=== PATIENT | female | born 1945 | race Caucasian/White ===

== ENCOUNTER → 2016-11-04 | Outpatient (CLI) | payer MEDICARE ==
--- NOTE | 2016-11-04 11:26 | BD ---
EXAMINATION TYPE: MG DEXA axial skeleton. DATE OF EXAM: 11/04/2016 COMPARISON: NONE Height: 62.50 Weight: 124 FRAX RISK QUESTIONS: Alcohol (3 or more units per day): no Family History (Parent hip fracture): no Glucocorticoids (More than 3mos): no (Ex: prednisone, prednisolone, methylprednisolone, dexamethasone, and hydrocortisone). History of Fracture in Adulthood: yes, toe Secondary Osteoporosis: 1. Type 1 Diabetes: no 2. Hyperthyroidism: no 3. Menopause before 45: no 4. Malnutrition: no 5. Chronic liver disease: no Rheumatoid Arthritis: no Current Tobacco Use: no RISK FACTORS HISTORY OF: Family History of Osteoporosis: no Active: yes Diet low in dairy products/other sources of calcium: at least one serving a day Postmenopausal woman: no Take estrogen and/or progesterone medications: not now How long: about 3 years Lost more than 2 inches in height since high school: states may have been about 64 inches tall at one time Frequent falls: no Poor Health: no Hyperparathyroidism: no Adrenal Insufficiency: no MEDICATIONS: Prednisone or other steroids: no Thyroid Medications:no Osteoporosis Medications: yes Which medication: Reclast How Long: approximately yearly after 2013 DEXA study Additional Medications: calcium & Vitamin D EXAM MEASUREMENTS: Bone mineral densitometry was performed using the [employer] System. Bone mineral density as measured about the Lumbar spine is: ----- L1-L4(G/cm2): 0.836 T Score Values are as follows: ----- L2: -3.4 ----- L3: -2.8 ----- L4: -2.7 ----- L1-L4: -2.9 Bone mineral density has: Decreased -1.3% since study of: 01/28/2013 Bone mineral density about the R hip (g/cm2): 0.784 Bone mineral density about the L hip (g/cm2): 0.710 T Score values are as follows: -----R Neck: -1.8 -----L Neck: -2.4 -----R Total: -2.3 -----L Total: -2.5 Bone mineral density has: Decreased -6.7% since study of: 01/28/2013 IMPRESSION: Osteoporosis (T Score less than -2.5) as noted by T Score values at the There is increased fracture risk and therapy is usually indicated based on age. Re-Screen 1-2 years. Bone density is diminished 1.3% from 2013 within the lumbar spine. Bone density is diminished 6.7% wi thin the bilateral hips from 2013. NOTE: T-SCORE=SD OF THE YOUNG ADULT MEAN.
--- NOTE | 2016-11-05 07:58 | MM ---
Reason for exam: screening (asymptomatic). Last mammogram was performed 1 year and 4 months ago. History: Patient is postmenopausal. Took estrogen for 3 years beginning at age 23. Took progesterone for 3 years. Physical Findings: A clinical breast exam by your physician is recommended on an annual basis and results should be correlated with mammographic findings. MG 3D Screening Mammo W/Cad Bilateral CC and MLO view(s) were taken. Prior study comparison: June 29, 2015, bilateral MG 3d screening mammo w/cad. January 30, 2014, bilateral MG screening mammo w CAD. The breast tissue is heterogeneously dense. This may lower the sensitivity of mammography. Finding: There are typically benign vascular, round calcifications in both breasts. There is no discrete abnormality. ASSESSMENT: Benign, BI-RAD 2 RECOMMENDATION: Routine screening mammogram of both breasts in 1 year.
== END | disposition home or self-care (01) ==
LOC: RADMAMWWP 09:14
PROVIDERS: ATTEND Family Medicine
DX: Z12.31 Encounter for screening mammogram for malignant neoplasm of breast (principal); M81.0 Age-related osteoporosis without current pathological fracture
CPT/HCPCS: 77080; 77063; G0202

== ENCOUNTER → 2017-11-23 | Outpatient (CLI) | payer MEDICARE ==
--- NOTE | 2017-11-24 10:19 | MM ---
Reason for exam: screening (asymptomatic). Last mammogram was performed 1 year and 1 month ago. History: Patient is postmenopausal. Took estrogen for 3 years beginning at age 23. Took progesterone for 3 years. Physical Findings: A clinical breast exam by your physician is recommended on an annual basis and results should be correlated with mammographic findings. MG 3D Screening Mammo W/Cad Bilateral CC and MLO view(s) were taken. Technologist: Filomena Kaplan RT (R)(M) Prior study comparison: November 04, 2016, bilateral MG 3d screening mammo w/cad. June 29, 2015, bilateral MG 3d screening mammo w/cad. The breast tissue is heterogeneously dense. This may lower the sensitivity of mammography. No suspicious abnormality. No significant changes when compared with prior studies. ASSESSMENT: Negative, BI-RAD 1 RECOMMENDATION: Routine screening mammogram of both breasts in 1 year.
== END | disposition home or self-care (01) ==
LOC: RADMAMWWP 11:09
PROVIDERS: ATTEND Family Medicine
DX: Z12.31 Encounter for screening mammogram for malignant neoplasm of breast (principal)
CPT/HCPCS: 77063; 77067

== ENCOUNTER → 2018-01-12 | Outpatient (CLI) | payer MEDICARE ==
[~2018-01-12] MED LIST: SODIUM CHLORIDE 0.9% 500 ML 500 ML in EMPTY BAG 1 BAG IV PRN; ZOLEDRONIC ACID 5 MG in SODIUM CHLORIDE 0.9% 100 ML IV ONE
[2018-01-12 15:32] VITALS: BP 161/83; PULSE 60; RESP 16; TEMP 97.9
== END | disposition home or self-care (01) ==
LOC: PROCWHC3 14:39
PROVIDERS: ATTEND Family Medicine
DX: M81.0 Age-related osteoporosis without current pathological fracture (principal)
CPT/HCPCS: 96365; J3489

== ENCOUNTER → 2018-01-22 | Day surgery (SDC) | payer MEDICARE ==
[2018-01-20 15:01] VITALS: BMI 22.6
[~2018-01-22] MED LIST changes: +LACTATED RINGERS 1,000 ML IV SCH; +LIDOCAINE 1% 20 ML VIAL (10MG/ML) FOR IV START INTRADERMA PRN; +MIDAZOLAM (PF) 2 MG/2 ML VIAL IV PRN; +PROPOFOL 10 MG/ML 20 ML VIAL IV ONE; -SODIUM CHLORIDE 0.9% 500 ML 500 ML in EMPTY BAG 1 BAG IV PRN; -ZOLEDRONIC ACID 5 MG in SODIUM CHLORIDE 0.9% 100 ML IV ONE
[2018-01-22 09:14] VITALS: RESP 16; TEMP 97
--- NOTE | 2018-01-22 11:01 | P.PCN ---
Date of Procedure: 01/22/18 Procedure(s) Performed: BRIEF HISTORY: Patient is a 72-year-old pleasant white female, scheduled for an elective colonoscopy as a part of screening for colorectal neoplasia. Her brother was diagnosed with colon cancer at age 60. PROCEDURE PERFORMED: Colonoscopy. PREOPERATIVE DIAGNOSIS: Screening for colon cancer/family history of colon cancer. IV sedation per Anesthesia. PROCEDURE: After informed consent was obtained, the patient, was brought into the endoscopy unit. IV sedation was administered by Anesthesia under continuous monitoring. Digital rectal examination was normal. Initially the Olympus CF- 160 flexible video colonoscope was then inserted in the rectum, gradually advanced into the cecum without any difficulty. Careful examination was performed as the scope was gradually being withdrawn. Ileocecal valve and the appendiceal orifice were visualized and appeared normal. Prep was excellent. Mucosa of the cecum, ascending colon, transverse colon, descending colon, sigmoid colon, and rectum appeared normal. Scattered sigmoid diverticulosis. Retroflexion was performed in the rectum and no lesions were seen. The patient tolerated the procedure well. IMPRESSION: Normal-appearing colon from rectum to cecum with no evidence of colorectal neoplasia. Scattered sigmoid diverticulosis. RECOMMENDATIONS: Findings of this examination were discussed with the patient or family. She was advised to have a repeat screening coloscopy in 5 years from now because of the family history of colon cancer.
[2018-01-22 11:19] VITALS: BP 111/60; PULSE 69
== END ==
LOC: ORWHC2ENDO 08:43
PROVIDERS: ATTEND Internal Medicine Gastroenterology
DX: Z12.11 Encounter for screening for malignant neoplasm of colon (principal); K57.30 Diverticulosis of large intestine without perforation or abscess without bleeding; Z80.0 Family history of malignant neoplasm of digestive organs; Z88.0 Allergy status to penicillin
CPT/HCPCS: J2704; G0105; 45378

== ENCOUNTER → 2018-07-02 | Outpatient (CLI) | payer MEDICARE ==
--- NOTE | 2018-07-02 12:46 | XR ---
EXAMINATION TYPE: XR chest 2V DATE OF EXAM: 07/02/2018 COMPARISON: NONE TECHNIQUE: PA and lateral views submitted. HISTORY: Pain FINDINGS: No pleural effusion or pneumothorax Hyperinflation. There is biapical pleural thickening. Vague nodul ar densities overlying both lungs. May represent nipple shadows. Hypertrophic and degenerative change of the spine. Subsegmental changes at the left perihilar and lower lobe region. IMPRESSION: 1. Left basilar atelectasis versus infiltrate. Vague nodular densities overlying both lungs which may represent nipple shadows. Pulmonary nodule not entirely excluded. Consider follow-up CT chest..
--- NOTE | 2018-07-02 12:47 | XR ---
EXAMINATION TYPE: XR abdomen 2V DATE OF EXAM: 07/02/2018 COMPARISON: NONE HISTORY: Lower abdominal pain TECHNIQUE: One view abdominal series FINDINGS: The osseous structures are intact. The bowel gas pattern is nonspecific. Surgical change in the righ t upper quadrant. Retained fecal debris throughout the colon correlate for constipation. Arthropathy of the hips. Correlate for chronic right sided acetabular labral tear. IMPRESSION: 1. Nonspecific abdomen.
== END ==
LOC: RADXRMAIN 12:21
PROVIDERS: ATTEND Family Medicine
DX: R91.1 Solitary pulmonary nodule (principal); R91.8 Other nonspecific abnormal finding of lung field; R19.7 Diarrhea, unspecified
CPT/HCPCS: 71046; 74019

== ENCOUNTER → 2018-07-12 | Outpatient (CLI) | payer MEDICARE ==
--- NOTE | 2018-07-12 13:57 | XR ---
EXAMINATION TYPE: XR chest 2V DATE OF EXAM: 07/12/2018 COMPARISON: Prior chest x-ray 07/02/2018 HISTORY: R07.9, chest pain TECHNIQUE: Frontal and lateral views of the chest are obtained. FINDINGS: There is no focal air space opacity, pleural effusion, or pneumothorax seen. The cardiac silhouette size is within normal limits. The aorta is dense. The osseous structures are intact. IMPRESSION: No acute cardiopulmonary process.
== END | disposition home or self-care (01) ==
LOC: RADXRMAIN 13:30
PROVIDERS: ATTEND Physician Assistant
DX: R07.9 Chest pain, unspecified (principal)
CPT/HCPCS: 71046

== ENCOUNTER → 2018-12-09 | Outpatient (CLI) | payer MEDICARE ==
--- NOTE | 2018-12-09 16:22 | BD ---
EXAMINATION TYPE: Axial Bone Density DATE OF EXAM: 12/09/2018 COMPARISON: NONE CLINICAL HISTORY: 73-year-old female post menopausal screening Height: 5 FT 2 IN Weight: 129 FRAX RISK QUESTIONS: History of Fracture in Adulthood: YES RISK FACTORS HISTORY OF: Active: YES Postmenopausal woman: AGE 50 Take estrogen and/or progesterone medications: ONLY FOR A SHORT TIME NO LONGER TAKES MEDICATIONS: Additional Medications: NONE Additional History: EXAM MEASUREMENTS: Bone mineral densitometry was performed using the [employer] System. Bone mineral density as measured about the Lumbar spine is: ----- L1-L4(G/cm2): 0.839 T Score Values are as follows: ----- L2: -3.2 ----- L3: -2.9 ----- L4: -2.6 ----- L1-L4: -2.8 Bone mineral density has: INCREASED1.1 SINCE STUDY OF 2016 Bone mineral density about the R hip (g/cm2): 0.775 Bone mineral density about the L hip (g/cm2): 0.758 T Score values are as follows: -----R Neck: -1.9 -----L Neck: -2.0 -----R Total: -2.2 -----L Total: -2.4 Bone mineral density has : INCREASED 1.1 % SINCE STUDY OF 2016 IMPRESSION: Osteoporosis (T Score less than -2.5). There is increased fracture risk and therapy is usually indicated based on age. Re-Screen 1-2 years. NOTE: T-SCORE=SD OF THE YOUNG ADULT MEAN.
--- NOTE | 2018-12-10 14:22 | MM ---
Reason for exam: screening (asymptomatic). Last mammogram was performed 1 year and 1 month ago. History: Patient is postmenopausal. Took estrogen for 3 years beginning at age 23. Took progesterone for 3 years. Physical Findings: A clinical breast exam by your physician is recommended on an annual basis and results should be correlated with mammographic findings. MG 3D Screening Mammo W/Cad Bilateral CC and MLO view(s) were taken. Prior study comparison: November 23, 2017, bilateral MG 3d screening mammo w/cad. November 04, 2016, bilateral MG 3d screening mammo w/cad. The breast tissue is heterogeneously dense. This may lower the sensitivity of mammography. Benign appearing bilateral calcifications. No suspicious abnormality. No significant changes when compared with prior studies. ASSESSMENT: Benign, BI-RAD 2 RECOMMENDATION: Routine screening mammogram of both breasts in 1 year.
== END | disposition home or self-care (01) ==
LOC: RADBDWWP 08:44
PROVIDERS: ATTEND Family Medicine
DX: Z12.31 Encounter for screening mammogram for malignant neoplasm of breast (principal); M81.0 Age-related osteoporosis without current pathological fracture
CPT/HCPCS: 77063; 77067; 77080

== ENCOUNTER → 2019-01-18 | Outpatient (CLI) | payer MEDICARE ==
[~2019-01-18] MED LIST changes: -LACTATED RINGERS 1,000 ML IV SCH; -LIDOCAINE 1% 20 ML VIAL (10MG/ML) FOR IV START INTRADERMA PRN; -MIDAZOLAM (PF) 2 MG/2 ML VIAL IV PRN; -PROPOFOL 10 MG/ML 20 ML VIAL IV ONE; +SODIUM CHLORIDE 0.9% 500 ML 500 ML in EMPTY BAG 1 BAG IV PRN; +ZOLEDRONIC ACID 5 MG in SODIUM CHLORIDE 0.9% 100 ML IV NR
[2019-01-18 09:50] VITALS: BP 156/86; PULSE 79; RESP 16; TEMP 97.4
== END ==
LOC: PROCWHC3 09:19
PROVIDERS: ATTEND Family Medicine
DX: M81.0 Age-related osteoporosis without current pathological fracture (principal)
CPT/HCPCS: 96365; J3489

== ENCOUNTER → 2019-08-31 | Outpatient (CLI) | payer MEDICARE ==
--- NOTE | 2019-08-31 15:31 | XR ---
EXAMINATION TYPE: XR foot complete LT, XR toes LT DATE OF EXAM: 08/31/2019 CLINICAL HISTORY: Injury with pain. TECHNIQUE: Frontal, lateral, and oblique images of the left foot are obtained. 3 views left first toe . COMPARISON: None FINDINGS: Overlying gauze or bandage material first distal phalanx level makes evaluation suboptimal . Persistent irregular linear lucency likely reflecting nondisplaced acute comminuted fracture throug h proximal to mid diaphysis first distal phalanx. Mild to moderate narrowing first metatarsophalangea l and interphalangeal joints. There is no additional acute fracture/dislocation evident in the left foot. Demineralization is pre sent. Some flexion of the toes is seen. The joint spaces in the left foot appear within normal limits . The overlying soft tissue appears unremarkable. IMPRESSION: There is acute comminuted nondisplaced fracture through proximal to midportion of the fi rst distal phalanx. (Initial encounter closed type post traumatic fracture)
== END | disposition home or self-care (01) ==
LOC: RADXRMAIN 14:21
PROVIDERS: ATTEND Family Medicine
DX: S92.421A Displaced fracture of distal phalanx of right great toe, initial encounter for closed fracture (principal)

== ENCOUNTER → 2019-10-14 | Outpatient (CLI) | payer MEDICARE ==
--- NOTE | 2019-10-14 14:58 | US ---
EXAMINATION TYPE: US venous doppler duplex LE LT DATE OF EXAM: 10/14/2019 2:48 PM COMPARISON: NONE CLINICAL HISTORY: 74-year-old female I82.402 DVT left lower leg. Edema SIDE PERFORMED: Left TECHNIQUE: The lower extremity deep venous system is examined utilizing real time linear array sonog han with graded compression, doppler sonography and color-flow sonography. FINDINGS: VESSELS IMAGED: External Iliac Vein (EIV) Common Femoral Vein Deep Femoral Vein Greater Saphenous Vein * Femoral Vein Popliteal Vein Small Saphenous Vein * Proximal Calf Veins (* superficial vessels Left Leg: Negative for DVT IMPRESSION: No evidence for DVT within the left lower extremity imaged from the groin to the upper calf.
== END | disposition home or self-care (01) ==
LOC: RADUSWWP 14:27
PROVIDERS: ATTEND Podiatrist Foot & Ankle Surgery
DX: I82.402 Acute embolism and thrombosis of unspecified deep veins of left lower extremity (principal)

== ENCOUNTER → 2020-01-26 | Outpatient (CLI) | payer MEDICARE ==
[2020-01-26 12:40] VITALS: BP 175/75; PULSE 73; RESP 16; TEMP 97.7
== END | disposition home or self-care (01) ==
LOC: PROCWHC3 12:19
PROVIDERS: ATTEND Family Medicine
DX: M81.0 Age-related osteoporosis without current pathological fracture (principal)
CPT/HCPCS: 96365; J3489

== ENCOUNTER → 2020-10-11 | Outpatient (CLI) | payer MEDICARE ==
--- NOTE | 2020-10-12 12:16 | MM ---
Reason for exam: screening (asymptomatic). Last mammogram was performed 1 year and 10 months ago. History: Patient is postmenopausal. Took estrogen for 3 years beginning at age 23. Took progesterone for 3 years. Physical Findings: A clinical breast exam by your physician is recommended on an annual basis and results should be correlated with mammographic findings. MG 3D Screening Mammo W/Cad Bilateral CC and MLO view(s) were taken. Prior study comparison: December 09, 2018, bilateral MG 3d screening mammo w/cad. November 23, 2017, bilateral MG 3d screening mammo w/cad. The breast tissue is heterogeneously dense. This may lower the sensitivity of mammography. No significant changes when compared with prior studies. ASSESSMENT: Benign, BI-RAD 2 RECOMMENDATION: Routine screening mammogram of both breasts in 1 year.
== END | disposition home or self-care (01) ==
LOC: RADMAMWWP 16:05
PROVIDERS: ATTEND Family Medicine
DX: Z12.31 Encounter for screening mammogram for malignant neoplasm of breast (principal); Z78.0 Asymptomatic menopausal state
CPT/HCPCS: 77063; 77067

== ENCOUNTER → 2021-01-10 | Outpatient (CLI) | payer MEDICARE ==
--- NOTE | 2021-01-10 14:10 | BD ---
EXAMINATION TYPE: Axial Bone Density DATE OF EXAM: 01/10/2021 COMPARISON: 12.09.2018 CLINICAL HISTORY: 75 YR OLD FEMALE.....ICD-10 CODE: M81.0 OSTEOPOROSIS Height: 62 Weight: 131 FRAX RISK QUESTIONS: History of Fracture in Adulthood: YES RISK FACTORS HISTORY OF: HX OF TOE FX AN ADULT Postmenopausal woman: YES, TOTAL HYST 1992, AGE 47 YRS OLD Take estrogen and/or progesterone medications: BCP IN THE PAST Hyperparathyroidism: NO Adrenal Insufficiency: NO MEDICATIONS: Osteoporosis Medications: RECLAST, YRLY Additional Medications: VIT D AND CALCIUM Additional History: NOTHING ADDITIONAL TO ADD EXAM MEASUREMENTS: Bone mineral densitometry was performed using the [employer] System. Bone mineral density as measured about the Lumbar spine is: ----- L1-L4(G/cm2): 0.849 T Score Values are as follows: ----- L1: -2.8 ----- L2: -3.2 ----- L3: -2.4 ----- L4: -2.8 ----- L1-L4: -2.8 Bone mineral density has: Increased 0.8% since study of: 12.09.2018 Bone mineral density about the R hip (g/cm2): 0.735 Bone mineral density about the L hip (g/cm2): 0.727 T Score values are as follows: -----R Neck: -1.9 -----L Neck: -2.2 -----R Total: -2.2 -----L Total: -2.3 Bone mineral density has: Increased 2.1% since study of: 12.09.2018 FRAX%s; THERE IS A 35.0% CHANCE FOR A MAJOR OSTEOPOROTIC FX AND A 20.0% FOR HIPS......PROBABILITY FOR FX IN 10 YRS TIME IMPRESSION: Osteoporosis NOTE: T-SCORE=SD OF THE YOUNG ADULT MEAN.
== END | disposition home or self-care (01) ==
LOC: RADBDWWP 09:17
PROVIDERS: ATTEND Family Medicine
DX: M81.0 Age-related osteoporosis without current pathological fracture (principal); Z78.0 Asymptomatic menopausal state
CPT/HCPCS: 77080

== ENCOUNTER → 2021-02-08 | Outpatient (CLI) | payer MEDICARE ==
[2021-02-08 09:39] VITALS: RESP 16; TEMP 97.6
[2021-02-08 10:16] VITALS: BP 159/83; PULSE 76
== END ==
LOC: PROCWHC3 09:25
PROVIDERS: ATTEND Family Medicine
DX: M81.0 Age-related osteoporosis without current pathological fracture (principal); Z88.0 Allergy status to penicillin
CPT/HCPCS: 96365; J3489

== ENCOUNTER → 2021-10-16 | Outpatient (CLI) | payer MEDICARE ==
--- NOTE | 2021-10-25 09:51 | MM ---
Reason for Exam: Screening (asymptomatic). Last screening mammogram was performed 12 month(s) ago. Patient History: Menarche at age 17. First Full-Term at age 25. Left ovary removed at age 49. Right ovary removed at age 49. Hysterectomy at age 49. Postmenopausal. Estrogen, starting at age 23 for 3 years. Patient used Progesterone for 3 years. Maternal grandmother had ovarian cancer. Mother had ovarian cancer at or over age 50. Risk Values: Carey 5 year model risk: 1.4%. NCI Lifetime model risk: 3.1%. Prior Study Comparison: 11/23/2017 Bilateral Screening Mammogram, [facility]. 12/09/2018 Bilateral Screening Mammogram, [facility]. 10/11/2020 Bilateral Screening Mammogram, [facility]. Tissue Density: The breast tissue is heterogeneously dense. This may lower the sensitivity of mammography. Findings: Analyzed By CAD. There is no suspicious group of microcalcifications or new suspicious mass in either breast. Overall Assessment: Benign, BI-RAD 2 Management: Screening Mammogram of both breasts in 1 year. A clinical breast exam by your physician is recommended on an annual basis and results should be correlated with mammographic findings. Electronically signed and approved by: George Brasher M.D. Radiologis
== END | disposition home or self-care (01) ==
LOC: RADMAMWWP 10:14
PROVIDERS: ATTEND Family Medicine
DX: Z12.31 Encounter for screening mammogram for malignant neoplasm of breast (principal); Z78.0 Asymptomatic menopausal state
CPT/HCPCS: 77063; 77067

== ENCOUNTER → 2022-06-17 | Outpatient (CLI) | payer MEDICARE ==
[2022-06-17 13:08] VITALS: BP 137/76; PULSE 74; RESP 16; TEMP 97.6
== END ==
LOC: PROCWHC3 12:55
PROVIDERS: ATTEND Family Medicine
DX: M81.0 Age-related osteoporosis without current pathological fracture (principal)
CPT/HCPCS: 96365; J3489

== ENCOUNTER 2022-08-08 10:10 | Day surgery (SDC) | payer MEDICARE ==
[2022-08-08 10:58] VITALS: RESP 16; TEMP 98
[2022-08-08] MEDS: LACTATED RINGERS 1,000 ML IV SCH ×2 (11:06→11:50)
[2022-08-08] MEDS ORDERED: PROPOFOL 10 MG/ML 20 ML VIAL IV ONE (12:03)
--- NOTE | 2022-08-08 12:22 | P.PCN ---
Date of Procedure: 08/08/22 Procedure(s) Performed: BRIEF HISTORY: Patient is a 77-year-old pleasant white female scheduled for an elective colonoscopy as a part of screening for colon cancer and family history of colon cancer. A sister and brother both were diagnosed with colon cancer at age 59 and 60 respectively. PROCEDURE PERFORMED: Colonoscopy. PREOPERATIVE DIAGNOSIS: Screening for colon cancer and family history of colon cancer. IV sedation per Anesthesia. PROCEDURE: After informed consent was obtained, the patient, was brought into the endoscopy unit. IV sedation was administered by Anesthesia under continuous monitoring. Digital rectal examination was normal. Initially the Olympus CF-160 flexible video colonoscope was then inserted in the rectum, gradually advanced into the cecum without any difficulty. Careful examination was performed as the scope was gradually being withdrawn. Ileocecal valve and the appendiceal orifice were visualized and appeared normal. Prep was excellent. Mucosa of the cecum, ascending colon, transverse colon, descending colon, sigmoid colon, and rectum appeared normal. Scattered sigmoid diverticulosis but Retroflexion was performed in the rectum and no lesions were seen. The patient tolerated the procedure well. IMPRESSION: Normal-appearing colon from rectum to cecum with no evidence of colorectal neoplasia. Scattered sigmoid diverticulosis. RECOMMENDATIONS: Findings of this examination were discussed with the patient as well as a family.. She was advised to have a repeat screening colonoscopy in 5 years because of the family history of colon
[2022-08-08 12:41] VITALS: BP 133/86; PULSE 67
== END 2022-08-08 13:00 | disposition home or self-care (01) ==
LOC: ORWHC2ENDO 10:10
PROVIDERS: ATTEND Internal Medicine Gastroenterology
DX: Z12.11 Encounter for screening for malignant neoplasm of colon (principal); Z80.0 Family history of malignant neoplasm of digestive organs; K57.30 Diverticulosis of large intestine without perforation or abscess without bleeding; M81.0 Age-related osteoporosis without current pathological fracture; M19.90 Unspecified osteoarthritis, unspecified site; Z88.0 Allergy status to penicillin; Z79.899 Other long term (current) drug therapy; Z90.49 Acquired absence of other specified parts of digestive tract
CPT/HCPCS: G0105; J2704; 45378

== ENCOUNTER → 2023-01-06 | Outpatient (CLI) | payer MEDICARE ==
--- NOTE | 2023-01-07 09:31 | MM ---
Reason for Exam: Screening (asymptomatic). Last mammogram was performed 1 year(s) and 2 month(s) ago. Patient History: Menarche at age 17. First Full-Term at age 25. Left ovary removed at age 49. Right ovary removed at age 49. Hysterectomy at age 49. Postmenopausal. Estrogen, starting at age 23 for 3 years. Patient used Progesterone for 3 years. Maternal grandmother had ovarian cancer. Mother had ovarian cancer at or over age 50. Risk Values: Carey 5 year model risk: 1.4%. NCI Lifetime model risk: 2.9%. Prior Study Comparison: 12/09/2018 Bilateral Screening Mammogram, [facility]. 10/11/2020 Bilateral Screening Mammogram, [facility]. 10/16/2021 Bilateral MG 3D screening mammo w/cad, [facility]. Tissue Density: There are scattered fibroglandular densities. Findings: Analyzed By CAD. There is no suspicious group of microcalcifications or new suspicious mass. Overall Assessment: Negative, BI-RAD 1 Management: Screening Mammogram of both breasts in [address] [facility] will attempt to contact patient to return for supplemental views and ultrasound if indicated. Patient should continue monthly self-breast exams. A clinical breast exam by your physician is recommended on an annual basis. This exam should not preclude additional follow-up of suspicious palpable abnormalities. Note on Carey scores and lifetime risk: 1. A Carey score greater than 3% is considered moderate risk. If this is the case, consider specialist referral to assess eligibility for a risk reducing agent. 2. If overall lifetime risk for the development of breast cancer is 20% or higher, the patient may qualify for future screening with alternating mammogram and breast MRI. Electronically signed and approved by: Juliano Benavides DO
== END | disposition home or self-care (01) ==
LOC: RADMAMWWP 09:21
PROVIDERS: ATTEND Family Medicine
DX: Z12.31 Encounter for screening mammogram for malignant neoplasm of breast (principal); M81.0 Age-related osteoporosis without current pathological fracture; Z78.0 Asymptomatic menopausal state
CPT/HCPCS: 77063; 77067

== ENCOUNTER → 2023-06-11 | Outpatient (CLI) | payer MEDICARE ==
--- NOTE | 2023-06-11 11:58 | BD ---
EXAMINATION TYPE: Axial Bone Density DATE OF EXAM: 06/11/2023 CLINICAL HISTORY: 78 years old Female. ICD-10 CODE: M81.0 AGE-RELATED OSTEOPOROSIS W/O CURRENT PATHO LO Height: 62 Weight: 129.9 FRAX RISK QUESTIONS: Alcohol (3 or more units per day): no Family History (Parent hip fracture): no Glucocorticoids (More than 3mos): no (Ex: prednisone, prednisolone, methylprednisolone, dexamethasone, and hydrocortisone). History of Fracture in Adulthood: yes Secondary Osteoporosis: 1. Type 1 Diabetes: no 2. Hyperthyroidism: no 3. Menopause before 45: no 4. Malnutrition: no 5. Chronic liver disease: no Rheumatoid Arthritis: no Current Tobacco Use: no RISK FACTORS HISTORY OF: Hip Fracture (Right/Left): no Spine Fracture: no History of Wrist Fracture: no Surgery to Spine/Hip(right/left)/Wrist (right/left): no MEDICATIONS: Thyroid Medications:no Which medication: How Long: Osteoporosis Medications: Reclast once a year How Long: past 6 years EXAM MEASUREMENTS: Bone mineral densitometry was performed using the [employer] System. Bone mineral density as measured about the Lumbar spine is: ----- L1-L4(G/cm2): 0.846 T Score Values are as follows: ----- L1: -3.0 ----- L2: -3.2 ----- L3: -2.6 ----- L4: -2.6 ----- L1-L4: -2.8 Z Score Values are as follows: ----- L1: -1.0 ----- L2: -1.2 ----- L3: -0.7 ----- L4: -0.6 ----- L1-L4: -0.8 Bone mineral density has: decreased -0.4 % since study of: Bone mineral density about the R hip (g/cm2): 0.749 Bone mineral density about the L hip (g/cm2): 0.710 T Score values are as follows: -----R Neck: -1.6 -----L Neck: -1.9 -----R Total: -2.1 -----L Total: -2.4 Z Score values are as follows: -----R Neck: 0.6 -----L Neck: 0.3 -----R Total: -0.1 -----L Total: -0.4 Bone mineral density has: increased 0.1 % since study of: 01/10/2021 FRAX%s: The graph provided illustrates a 19.9% chance for a major osteoporotic fx and a 4.9% chance f or the hips probability for fx in 10 years time. IMPRESSION: Osteoporosis (T Score less than -2.5). There is increased fracture risk and therapy is usually indicated based on age. Re-Screen 1-2 years. NOTE: T-SCORE=SD OF THE YOUNG ADULT MEAN.
== END | disposition home or self-care (01) ==
LOC: RADBDWWP 06-10 09:57
PROVIDERS: ATTEND Family Medicine
DX: M81.0 Age-related osteoporosis without current pathological fracture (principal); M85.89 Other specified disorders of bone density and structure, multiple sites
CPT/HCPCS: 77080

== ENCOUNTER → 2023-07-09 | Outpatient (CLI) | payer MEDICARE ==
[2023-07-09] MEDS: DENOSUMAB 60 MG/ML 1 ML SYRINGE SQ NR (13:19)
[2023-07-09 14:00] VITALS: BP 158/78; PULSE 84; RESP 14; TEMP 97.4
== END ==
LOC: PROCWHC3 13:03
PROVIDERS: ATTEND Family Medicine
DX: M81.0 Age-related osteoporosis without current pathological fracture (principal)
CPT/HCPCS: 96372; J0897

== ENCOUNTER → 2024-02-05 | Outpatient (CLI) | payer MEDICARE ==
[2024-02-05 14:04] VITALS: BP 128/82; PULSE 73; RESP 16; TEMP 97.1
[2024-02-05] MEDS: DENOSUMAB 60 MG/ML 1 ML SYRINGE SQ NR (14:04)
== END | disposition home or self-care (01) ==
LOC: PROCWHC3 13:32
PROVIDERS: ATTEND Family Medicine
DX: M81.0 Age-related osteoporosis without current pathological fracture (principal)
CPT/HCPCS: 96372; J0897

== ENCOUNTER → 2024-06-09 | Outpatient (CLI) | payer MEDICARE ==
--- NOTE | 2024-06-09 09:37 | MM ---
Reason for Exam: Screening (asymptomatic). Last mammogram was performed 1 year(s) and 6 month(s) ago. Patient History: Menarche at age 17. First Full-Term at age 25. Left ovary removed at age 49. Right ovary removed at age 49. Hysterectomy at age 49. Postmenopausal. Estrogen, starting at age 23 for 3 years. Patient used Progesterone for 3 years. Maternal grandmother had ovarian cancer. Mother had ovarian cancer at or over age 50. Risk Values: Carey 5 year model risk: 1.4%. NCI Lifetime model risk: 2.5%. Prior Study Comparison: 11/23/2017 Bilateral Screening Mammogram, [facility]. 12/09/2018 Bilateral Screening Mammogram, [facility]. 10/11/2020 Bilateral Screening Mammogram, [facility]. 10/16/2021 Bilateral MG 3D screening mammo w/cad, [facility]. 01/06/2023 Bilateral MG 3D screening mammo w/cad, [facility]. Tissue Density: The breasts are heterogeneously dense, which may obscure small masses. Findings: Analyzed By CAD. Benign-appearing vascular calcifications bilaterally is redemonstrated. There is no suspicious group of microcalcifications or new suspicious mass in either breast. Overall Assessment: Benign, BI-RAD 2 Management: Screening Mammogram of both breasts in 1 year. . Patient should continue monthly self-breast exams. A clinical breast exam by your physician is recommended on an annual basis. This exam should not preclude additional follow-up of suspicious palpable abnormalities. Note on Carey scores and lifetime risk: 1. A Carey score greater than 3% is considered moderate risk. If this is the case, consider specialist referral to assess eligibility for a risk reducing agent. 2. If overall lifetime risk for the development of breast cancer is 20% or higher, the patient may qualify for future screening with alternating mammogram and breast MRI. [facility], , 06/09/2024 9:34 AM. Electronically signed and approved by: Nima Browning M.D.
== END | disposition home or self-care (01) ==
LOC: RADMAMWWP 08:54
PROVIDERS: ATTEND Family Medicine
DX: Z12.31 Encounter for screening mammogram for malignant neoplasm of breast (principal); R92.333 Mammographic heterogeneous density, bilateral breasts; R92.1 Mammographic calcification found on diagnostic imaging of breast; Z78.0 Asymptomatic menopausal state
CPT/HCPCS: 77063; 77067

== ENCOUNTER → 2024-08-08 | Outpatient (CLI) | payer MEDICARE ==
[2024-08-08] MEDS: DENOSUMAB 60 MG/ML 1 ML SYRINGE SQ NR (13:54)
[2024-08-08 13:56] VITALS: BP 134/77; PULSE 80; RESP 16; TEMP 98
== END ==
LOC: PROCWHC3 13:41
PROVIDERS: ATTEND Family Medicine
DX: M81.0 Age-related osteoporosis without current pathological fracture (principal)
CPT/HCPCS: 96372; J0897